=== PATIENT | female | born 1945 | race Caucasian/White ===

== ENCOUNTER → 2018-01-16 12:07 | Outpatient (CLI) | payer MEDICARE, SELFPAY | LOC: LAB 12:11 → RAD 12:26 | PROVIDERS: Family Provider Family Medicine; PCP Family Medicine; Visit Provider Internal Medicine Gastroenterology | DX: Z12.11 Encounter for screening for malignant neoplasm of colon (principal) | CPT/HCPCS: 74270 ==

== ENCOUNTER 2018-02-03 05:21 | Day surgery (SDC) | payer MEDICARE, SELFPAY ==
[2018-02-03] VITALS (7 sets, daily range): BP systolic 109–161; BP diastolic 69–89; PULSE 94–106; RESP 16–18; TEMP 35.8–37; O2SAT 94–98; BMI 27.7
--- NOTE | 2018-02-03 06:58 | OP.ENDO_ITS ---
Patient Name: Cindy Goff Procedure Date: 02/03/2018 6:45 AM Date of : 1945 Age: 72 Procedure: Flexible Sigmoidoscopy Indications: Abnormal barium enema, Diverticulitis Providers: Ryan Valle MD Referring MD: Ryan Valle MD Medicines: Midazolam 3.5 mg IV, Meperidine 75 mg IV Patient Profile: Last Colonoscopy: 2008. Complications: No immediate complications. Procedure: Pre-Anesthesia Assessment: - Prior to the procedure, a History and Physical was performed, and patient medications and allergies were reviewed. The patient's tolerance of previous anesthesia was also reviewed. The risks and benefits of the procedure and the sedation options and risks were discussed with the patient. All questions were answered, and informed consent was obtained. Prior Anticoagulants: The patient has taken aspirin, last dose was 2 days prior to procedure. ASA Grade Assessment: II - A patient with mild systemic disease. After reviewing the risks and benefits, the patient was deemed in satisfactory condition to undergo the procedure. After obtaining informed consent, the endoscope was passed under direct vision. Throughout the procedure, the patient's blood pressure, pulse, and oxygen saturations were monitored continuously.The colonoscopy was performed without difficulty. The patient tolerated the procedure well. The quality of the bowel preparation was good. Moderate Sedation: Moderate (conscious) sedation was personally administered by the endoscopist. The following parameters were monitored: oxygen saturation, heart rate, blood pressure, and response to care. Total physician intraservice time was 15 minutes. Findings: The perianal and digital rectal examinations were normal. Multiple diverticula were found in the sigmoid colon. Area was tattooed with an injection of 0.5 mL of Alfreda ink. Impression: - Diverticulosis in the sigmoid colon. Tattooed at the distal aspect of the dissease. Not able to completely cross the sigmoid colon. - No specimens collected. Recommendation: - Discharge patient to home. - Clear liquid diet. - Return to [facility] tomorrow for surgery for planned resection of the sigmoid colon for diverticular stricture. - Repeat colonoscopy in 1 year for screening purposes. Procedure Code(s): --- Professional --- 23764, Sigmoidoscopy, flexible; with directed submucosal injection(s), any substance 45215, 59, Moderate sedation services provided by the same physician or other qualified health primary health care nurse performing the diagnostic or therapeutic service that the sedation supports, requiring the presence of an independent trained observer to assist in the monitoring of the patient's level of consciousness and physiological status; initial 15 minutes of intraservice time, patient age 5 years or older Diagnosis Code(s): --- Professional --- K57.32, Diverticulitis of large intestine without perforation or abscess without bleeding K57.30, Diverticulosis of large intestine without perforation or abscess without bleeding R93.3, Abnormal findings on diagnostic imaging of other parts of digestive tract CPT copyright 2017 [employer]. All rights reserved. The codes documented in this report are preliminary and upon counseling aide review may be revised to meet current compliance requirements. Ryan Valle MD 02/03/2018 6:58:23 AM This report has been signed electronically. Number of Addenda: 0 Note Initiated On: 02/03/2018 6:45 AM
== END 2018-02-03 08:05 | disposition home or self-care (01) ==
LOC: EN 05:21 → AC 05:22
PROVIDERS: Family Provider Family Medicine; PCP Family Medicine; Visit Provider Surgery
PROC: 0DJD8ZZ Inspection of Lower Intestinal Tract, Via Natural or Artificial Opening Endoscopic (ICD-10-PCS; CPT 45330; principal; 2018-02-03 06:25)
DX: K57.32 Diverticulitis of large intestine without perforation or abscess without bleeding (principal)
CPT/HCPCS: 99152; 99153; J7120; A4648

== ENCOUNTER 2018-02-04 05:23 | Inpatient (IN) | payer MEDICARE, SELFPAY ==
[2018-01-29 11:34] VITALS: BP 139/83; PULSE 91; RESP 16; TEMP 36.7; O2SAT 94; BMI 27.8
--- NOTE | 2018-01-29 12:01 | SDCEKG_ITS ---
Test Reason : Blood Pressure : / mmHG Vent. Rate : 086 BPM Atrial Rate : 086 BPM P-R Int : 168 ms QRS Dur : 068 ms QT Int : 338 ms P-R-T Axes : 054 045 035 degrees QTc Int : 404 ms Normal sinus rhythm Septal infarct , age undetermined Abnormal ECG Confirmed by MICHAEL CONCEPCION, RADHA ([id number]), tape editor WILLIAN RENEE ([id number]) on 02/04/2018 8:32:57 AM Referred By: Ryan Valle Confirmed By:RADHA RODRIGUEZ MD
[2018-01-29 12:53] LABS: Hematocrit 47.7 % (37-47); Hemoglobin 15.2 g/dl (12.0-15.0); Mean Corp Hgb Conc 31.9 g/gl (32-36); Mean Corpuscular Hgb 28.4 pg (27.0-32.0); Mean Corpuscular Volume 89.2 fL (81-99); Mean Platelet Vol. 9.3 fl (6.2-12.0); Platelet Count 462 K/mm3 (150-450); RBC Distribution Width CV 15.7 % (11.6-14.6); RBC Distribution Width SD 50.9 fl (35.1-43.9); Red Blood Count 5.35 M/mm3 (4.2-5.4); White Blood Count 12.2 K/mm3 (4.4-11.0)
[2018-01-29 12:55] LABS: Scan Indicated on CBC? Y/N NO
[2018-01-29 13:14] LABS: Partial Thromboplast Time 28.1 Seconds (24.1-36.2); Prothrombin Time (Protime)PT. 12.7 SECONDS (11.7-14.9)
[2018-01-29 13:30] LABS: AST(SGOT) 17 U/L (15-37); Alanine Aminotransfer ALT/SGPT 33 U/L (13-56); Albumin, Serum 3.6 g/dL (3.2-5.0); Alkaline Phosphatase 162 U/L (45-117); Anion Gap 12 (5-15); BUN 9 mg/dL (7-18); BUN/Creat Ratio 13.4 RATIO (10-20); Bilirubin, Direct 0.14 mg/dL (0.00-0.30); Calcium,Total 9.4 mg/dL (8.5-10.1); Chloride 100 mmol/L (98-107); Creatinine, Serum 0.67 mg/dL (0.55-1.02); EST Glomerular Filtration Rate 92 mL/min (>60); Est Glom Filt Rate - Afr Amer 111 mL/min (>60); Estimated Creatinine Clearance 42.68 ml/min; Glucose 114 mg/dL (74-106); Potassium 3.7 mmol/L (3.5-5.1); Protein, Total 8.6 g/dL (6.4-8.2); Sodium Level 137 mmol/L (136-145); Thyroid Stim Hormone (TSH) 0.71 uIU/mL (0.358-3.74)
[2018-02-04] VITALS (36 sets, daily range): BP systolic 103–161; BP diastolic 45–117; PULSE 83–115; RESP 16–18; TEMP 36.2–37; O2SAT 93–100; BMI 27.8
[2018-02-04] MEDS: Lactated Ringers 1,000 ML 40 ML IV (06:40)
[2018-02-04] MEDS: Lubricating Jelly 60 GM Tube 30 GM TOPICAL (06:52)
--- NOTE | 2018-02-04 07:15 | COL_PTH ---
PATIENT: TONE ZABALA LOC: MS2 U#:[id number] AGE/SX: 72/F ROOM: [facility] – [place] RE02/04/[address]: Dr. Ryan Valle MD : 1945 BED: 1 DIS: 02/06/2018 SPEC #: [id number] RECD: 02/04/18 16:17 STATUS: JIGNESH REChristina #: [id number] FELIX: 02/04/18 07:[address]: Ryan Valle DEPT: SURGICAL PATHOLOGY RECD BY: Lindsey Nicholas ENTERED: 02/05/18 09:25 SP TYPE: COLON OTHR DR: Dr. Ryan Tang MD Tissues: A - Colon Donuts B - Colon Donuts C - Colon, NOS Procedures: Surgery Specimen Level III Surgery Specimen Level IV Surgery Specimen Level V HEADER OPERATION: Laparoscopic converted hand assisted anterior resection, partial Left salpingectomy, left ureteral catheter placement PRE-OP DIAGNOSIS: Colonic obstruction TISSUE SUBMITTED: A. Proximal donut (sigmoid), B. Distal donut (rectal), C. Sigmoid colon with fragment left fallopian tube MICROSCOPIC DIAGNOSIS A. Proximal donut: Colonic donut with mucosal congestion and hemorrhage. B. Distal donut: Colonic donut with mucosal congestion and hemorrhage. C. Sigmoid colon and fragment of left fallopian tube, colectomy and partial left salpingectomy: Diverticulosis and diverticulitis. Portion of fallopian tube with chronic inflammation in the adjacent soft tissue. Pericolonic lymph nodes with reactive changes. ISMAEL:radha 02/09/18 MICROSCOPIC DESCRIPTION Slides are reviewed. GROSS DESCRIPTION A - Received in fixative is one container labeled with the patient's name and designated proximal donut (sigmoid). The specimen consists of a donut-shaped piece of colonic tissue measuring 1.5 x 1.5 x 1.4 cm. The mucosa is congested. No mass lesion is identified. The entire specimen is submitted in one cassette. / ISMAEL:radha 02/05/18 B - Received in fixative is one container labeled with the patient's name and designated distal donut (rectal). The specimen consists of a donut-shaped piece of colonic tissue measuring 2 x 1.5 x 1 cm. Multiple sutures are noted. A focal area of congestion is noted. Neuro Urologist sections are submitted in one cassette. / SJ:radha 02/05/18 C - Received in fixative is one container labeled with the patient's name and designated sigmoid colon with fragment of left fallopian tube. The specimen consists of a V-shaped segment colon with attached pericolonic adipose tissue measuring 17 cm in length. One resection margin is open and other resection margin is stapled. A V-shaped band is noted 11 cm away from the resection margin. The serosal surface in that area is ragged. No mucosal lesion is identified. Also present in the container is a tubular piece of olivarez soft tissue consistent with portion of fallopian tube measuring 2 cm in length and up to 0.5 cm in diameter. Two jordyn are noted at one edge of the specimen. This portion of fallopian tube segment is submitted in cassette 1. More dictation will follow after additional fixation. / ISMAEL:radha 02/05/18 Sections reveal multiple diverticula. Some of the diverticula appear ruptured. Bluish to black dye discoloration is noted in the area of the band segment of the colon. Sections of pericolonic adipose reveal a few possible lymph nodes. Neuro Urologist sections are submitted in nine cassettes as follows: 1 - fallopian tube which will be serially sectioned at the time of embedding, 2 - resection margin with one resection margin inked black, 3 & 4 - diverticula, 5 & 6 - portion of the colon with blue discoloration near the band of segment of the colectomy specimen, 7 & 8 - ragged area of serosal surface, 9 - pericolonic adipose tissue with possible lymph node tissue. / ISMAEL:radha 02/06/18 TC:5 CPT: 10017, 32726 x2, 53808
--- NOTE | 2018-02-04 07:17 | PCM.DC.GS ---
Discharge Diet: Light diet - advance as tolerated - if you have questions about your diet instructions, please talk to you doctor. Discharge Activity: May Not Drive - for 1 week or while taking narcotic pain medicine. May shower in (days): 1 Lifting Restrictions: 10 pounds Call your doctor if your incision/area has: Continuous Slow Oozing, Sudden Increased Bleeding, Increased Pain/ Swelling, Increased Redness, Foul Smelling Discharge Call your doctor if you observe: Fever of 101 or Higher Suture Line Care: Avoid Pulling/Pushing, Avoid Pinching/Bending Additional Dressing/Incision Instructions:: Change or remove dressing in 4 days. Leave steri-strips in place for 1 week. Allergies/Adverse Reactions: Allergies Sulfa (Sulfonamide Antibiotics) Adverse Reaction (Mild, Verified 01/29/18 11:12) achy joints promethazine [From Phenergan] Adverse Reaction (Verified 01/29/18 12:07) hallucinations Medications to take at Discharge aspirin 325 mg tablet 325 mg PO BID 01/26/18 atorvastatin 20 mg tablet 20 mg PO DAILY 01/26/18 hydrochlorothiazide 25 mg tablet 25 mg PO DAILY 01/26/18 levothyroxine 75 mcg capsule 75 mcg PO DAILY 01/26/18 multivitamin capsule 1 cap PO DAILY 01/26/18 omeprazole 20 mg capsule,delayed release 20 mg PO BID cap 01/26/18 ondansetron HCl 4 mg tablet 4 mg PO TID-QID PRN 01/26/18 potassium chloride ER 10 mEq tablet,extended release 10 meq PO DAILY 01/26/18 tramadol 50 mg tablet 50 mg PO Q6H PRN 01/26/18 L.acidoph,Paracasei, B.lactis [Probiotic] 1 each PO DAILY 01/29/18 neomycin 500 mg tablet 500 mg PO .COMPLEX #6 tab 01/29/18 ondansetron 8 mg disintegrating tablet 8 mg PO TID PRN #10 tab 02/03/18 Hydrocodone Bitart/Apap 5-325 [Leopold 5MG-325MG] 1 tablet PO Q6H PRN PRN 3 Days #10 tablet 02/04/18 Metronidazole 500 mg PO .COMPLEX 02/04/18 The following prescriptions were given: Hydrocodone Bitart/Apap 5-325 [Leopold 5MG-325MG] 1 tablet PO Q6H PRN PRN 3 Days #10 tablet PRN Reason: Pain Primary Care Physician: Ryan Tang MD [Primary Care Provider] - Test Results: Test results from this visit will be discussed in further detail at your follow-up appointment, if applicable. Please Follow Up With: Ryan Valle MD - [phone] When: Call to make an appointment to be seen in about 10 days.
--- NOTE | 2018-02-04 07:43 | PCM.OPRPT ---
Report of Operation Date of Procedure: 02/04/18 Pre-Operative Diagnosis: Preoperative sigmoid colectomy for general surgery, history of diverticulitis Post-Operative Diagnosis: Same Surgery/Procedure Performed:: Cystoscopy and left ureteral catheter placement Description of Surgical Findings:: 72-year-old female who underwent general anesthesia she was placed in dorsal lithotomy position the urethra and vaginal area prepped and draped in usual sterile fashion went at the bladder the 21 Martiniquais cystourethroscope inside the bladder she had a minor cystocele the trigone was normal the bladder there is no tumor stones or any abnormalities I then cannulated the left ureteral orifice with a Glidewire and a Pollack catheter and advanced the Pollack catheter up into the kidney pulled the wire left the Pollack catheter in place and then put a catheter in the bladder and secured the Pollack catheter to the Gale catheter. Patient was then released to Dr. Valle to proceed with his surgery. Type of Anesthesia:: General Drains: stent - Admit VTE Documentation VTE Present on Admission: No VTE Mechan Device Prophylaxis: SCD's VTE Pharm Prophylaxis ordered?: No
[2018-02-04] MEDS: Lidocaine/D5W 2,000 MG/250 ML IV.SOLN 21.69 MG IV (08:04)
[2018-02-04] MEDS: Bupivacaine Mpf 0.5% 30 ML VIAL (11:18)
[2018-02-04] MEDS: BUPIVACAINE LIPOSOME/PF 20 ML VIAL OPERA.SITE (11:19)
--- NOTE | 2018-02-04 11:35 | OP.PCM_ITS ---
Problem List (1) Diverticular stricture Status: Acute Report of Operation Date of Procedure: 02/04/18 Pre-Operative Diagnosis: Diverticular stricture. sigmoid diverticulitis Post-Operative Diagnosis: Same Surgery/Procedure Performed:: Laparoscopic sigmoid colectomy converted to hand- assisted low anterior resection with primary end-to-end stapled anastomosis and partial left salpingectomy Description of Surgical Findings:: Time out and informed consent was obtained. 72-year-old female was taken the operating room. She was placed upon the table and underwent general endotracheal intubation anesthesia. Cefotetan 2 g are given intravenously preoperatively. The patient was placed in a low lithotomy position. Performed a cystoscopy with left ureteral catheter placement. Positioning was confirmed. Arm padding was secured with gel pads and being bagged. Low lithotomy position confirmed. Then the perineum and abdomen sterilely prepped and draped. 0.25% Marcaine 30 cc was mixed with 20 cc of Exparel and diluted with 50 cc of saline to a total of 100 cc. This was a local mixture that was used for a tap block and infiltration of the skin. To the right of the umbilicus local was instilled. A 5 minor incision was created. Using a Visiport technology direct access was gained to the abdomen very carefully air was insufflated. Clean access was obtained. There is evidence of extensive adhesions of omentum to the periumbilical area consistent with the patient's previous history of umbilical herniorrhaphy. Five-minute trochars were placed on the right lower quadrant and right superior inguinal region. A Enseal was used to transect the copious adhesions of omentum to the anterior abdominal wall located at the umbilicus. Inspection now revealed with the patient in Trendelenburg position that there was significant inflammatory change with dense adhesions of the sigmoid colon to the left pelvic sidewall. The sigmoid colon upon further inspection was curled back on itself with an inflammatory reaction with it being adherent to it seems self at the rectosigmoid junction. Carefully and tediously laparoscopically freed up adhesions I got most of the left pelvic sidewall freed the left ureter was identified the catheter could be seen in the left ureter in fact I even had inspect this area and everyone involved felt that the left ureter was intact. Later in the case under direct visualization I removed the catheter while watching that left ear and there was absolutely no leakage. After further dissection of the sigmoid colon and freeing it from its position in the pelvis it became apparent that the mesentery to the sigmoid was extraordinarily thickened and that there was still inflammatory change of the rectum at the peritoneal reflection related to the sigmoid having previously been curled back on itself. After further inspection I felt that the safest means to continue to approach his case was to convert to a hand assist. I made a 7 cm incision from the umbilicus straight inferiorly. Electrocautery was used for hemostasis and incised the fascia. A GelPort was inserted. I then utilized that to help visualize the inflammatory thickened sigmoid colon and was able to transect the mesentery with the Enseal device. There was evidence of very dense adhesion right at the rectosigmoid junction to the left pelvic side wall. It could be seen that this was immediately adjacent to the ureter in that area. Using careful blunt dissection and finger dissection and scissor dissection and Enseal dissection I gradually was able to free that portion of the very distal sigmoid from that pelvic sidewall. Having achieved this now I felt that I had good mobilization of the diseased portion of the bowel. I switched out the right lower quadrant foraminal port for a 12-minute report. I inserted a Newbury with a gold load and with 2 firings I was able to transect the rectum. There is noted to be nice and intact. I then incised the white line of Toldt all the way up to the splenic flexure and was able to further mobilize the descending colon. During a portion of that procedure of freeing the sigmoid colon, the left tube and ovary was densely adherent to the colon as well and I did resect a very small portion of the left tube and submitted that as a specimen as well. I Left the left ovary intact. Now I had good release of the sigmoid colon in the area that I wanted to anastomose appear to be viable. This point I elected to do a tap block. Using the Marcaine Exparel saline mixture and under direct laparoscopic inspection I injected bilaterally the subcostal area and then laterally in the intercostal muscular space in order to block sensation to the incision area and surgical area. I felt that I had good injection performed. Finally now having achieved that and having used 80 cc of the local mixture and now withdrew the sigmoid colon at the hand assist site. I transected the remainder of the mesentery using the Enseal device and obtain hemostasis with interrupted 4-0 silk. The remaining sigmoid colon had an excellent blood supply. I transected the bowel after bringing it externally. I placed it with suture of 2-0 Prolene. I placed a 29 mm circular anastomotic anvil. Secured the pursestring. Placed that back within the abdomen. The rectum was irrigated with dilute Betadine. Gently dilated the anus. The stapler was inserted with the assistance of a certified nurse first officer and flight instructor. Watch the stapler and up anterior to the staple line but below the peritoneal reflection but separate from the vaginal tissue. Trocar was exited at that site it was mated to the anvil the 2 were approximated the device was fired and then removed the donuts were inspected they were noted be completely intact. Using a rigid sigmoidoscopy the anastomosis was inspected was noted to be intact no bleeding air was insufflated and there was absolutely no air leak. I felt that I had a good primary anastomosis and that it did not require any diversion. The pelvis was irrigated and aspirated free. Small bowel was in good position. I placed the greater omentum overlying. I then repaired the right lower quadrant pulmonary trocar site using a grainy needle and a [id number] suture of 0 Vicryl. Ports were now removed under visualization the abdomen was allowed to deflate CO2. The patient had evidence of a previous incisional hernia repair at the umbilicus as there was previously some permanent braided suture placed. I elected therefore to close the hand assist port site with a running #1 Prolene. 2 such sutures were used to perform that technique and good approximation was achieved. More of the local mixture was injected directly in and around the incision area for patient comfort. It is of note that at this point the procedure gowns and gloves and draping had been changed as part of the ERAS program. Skin edges were approximated interrupted or running septic or 4-0 Monocryl. Steri-Strips Telfa and OpSite dressings applied. Sponge and instrument and needle counts were reported to the surgeon to be correct. Blood loss was 150 cc. Specimens include sigmoid colon, donuts, portion of left tube Drains none. Blood loss 150 cc. As noted above the left ureteral catheter was removed prior to completion of the operation and the left ureter noted to be completely intact. The patient was taken to the recovery area in satisfactory condition no apparent complication. Ryan Valle M.D., F.A.C.S. Type of Anesthesia:: General Anesthesiologist: Denis Carlton
[2018-02-04] MEDS: Ketorolac 15 MG/ML Vial IV (13:40)
[2018-02-04] MEDS: oxyCODONE 5 MG Tablet PO (20:22)
[2018-02-04] MEDS: Ondansetron ODT 4 MG Tablet PO (20:22)
[2018-02-04] MEDS: Lactated Ringers 1,000 ML 100 ML IV (22:18)
[2018-02-04] MEDS: Aspirin 325 MG Tablet PO (22:21)
[2018-02-04] MEDS: Docusate Sodium 100 MG Capsule PO (22:21)
[2018-02-04] MEDS: Pantoprazole Sodium 20 MG Tablet PO (22:22)
[2018-02-04] MEDS: Atorvastatin Calcium 20 MG Tablet PO (22:22)
[2018-02-05] MEDS: Acetaminophen 500 MG Tablet 1000 MG PO ×4 (00:10→17:33)
[2018-02-05 05:35] LABS: Hematocrit 34.5 % (37-47); Hemoglobin 11.1 g/dl (12.0-15.0); Mean Corp Hgb Conc 32.2 g/gl (32-36); Mean Corpuscular Hgb 28.5 pg (27.0-32.0); Mean Corpuscular Volume 88.7 fL (81-99); Mean Platelet Vol. 8.9 fl (6.2-12.0); Platelet Count 351 K/mm3 (150-450); RBC Distribution Width CV 15.9 % (11.6-14.6); RBC Distribution Width SD 51.3 fl (35.1-43.9); Red Blood Count 3.89 M/mm3 (4.2-5.4); White Blood Count 10.3 K/mm3 (4.4-11.0)
[2018-02-05 05:37] LABS: Scan Indicated on CBC? Y/N NO
[2018-02-05 05:57] LABS: Anion Gap 8 (5-15); BUN 5 mg/dL (7-18); BUN/Creat Ratio 6.9 RATIO (10-20); Calcium,Total 7.9 mg/dL (8.5-10.1); Chloride 107 mmol/L (98-107); Creatinine, Serum 0.73 mg/dL (0.55-1.02); EST Glomerular Filtration Rate 84 mL/min (>60); Est Glom Filt Rate - Afr Amer 101 mL/min (>60); Estimated Creatinine Clearance 42.68 ml/min; Glucose 91 mg/dL (74-106); Potassium 3.5 mmol/L (3.5-5.1); Sodium Level 142 mmol/L (136-145)
[2018-02-05 06:00] VITALS: BP 130/47; PULSE 86; RESP 18; TEMP 36.8; O2SAT 96
[2018-02-05] MEDS: Levothyroxine 75 MCG Tablet PO (06:06)
[2018-02-05] MEDS: Ondansetron ODT 4 MG Tablet PO ×2 (06:07→13:21)
[2018-02-05] MEDS: oxyCODONE 5 MG Tablet PO ×2 (06:07→13:31)
--- NOTE | 2018-02-05 06:48 | PCM.PN.SRG ---
Patient Problems: Active and Suspected Problems (Last Updated 01/26/18 @ 15:43 by Kiya Pate) Diverticular stricture (Acute) Subjective: Patient evaluated resting comfortably in bed. She notes 7 out of 10 abdominal pain. She denies nausea, vomiting. She is urinating well. Tolerating clear liquids. - Physical Exam General: Alert, Oriented x3, Cooperative Abdomen: Hypoactive Bowel Sounds, Distended, Tender - generalized, - - Incisions c/d/i. No erythema or infection noted Vital Signs Temp Pulse Resp BP Pulse Ox 98.2 F 86 18 130/47 H 96 02/05/18 06:00 02/05/18 06:00 02/05/18 06:00 02/05/18 06:00 02/05/18 06:00 Oxygen Flow Rate (L/min) 2 Oxygen Delivery Method Room Air Weight: 159 lb 6.307 oz Body Mass Index (BMI) 27.8 Intake and Output for Last 24 Hours 02/03/18 02/04/18 02/05/18 23:59 23:59 23:59 Intake Total 6900 / 6900 2316 / 2316 Output Total 340 / 340 2200 / 2200 Balance 6560 / 6560 116 / 116 Laboratory Tests Past 24 Hrs 02/05/18 02/05/18 05:05 05:05 WBC 10.3 RBC 3.89 L Hgb 11.1 L Hct 34.5 L MCV 88.7 MCH 28.5 MCHC 32.2 RDW 15.9 H RDW Differential 51.3 H Plt Count 351 MPV 8.9 Sodium 142 Potassium 3.5 Chloride 107 Carbon Dioxide 27.0 Anion Gap 8 BUN 5 L Creatinine 0.73 Estim Creat Clear Calc 42.68 Est GFR (MDRD) Af Amer 101 Est GFR (MDRD) Non-Af 84 BUN/Creatinine Ratio 6.9 L Glucose 91 Calcium 7.9 L Medical Necessity - Tobacco Use Smoking Status: Former smoker Tobacco Use: Non-smoker Assessment/Plan All Active Problems (Last Updated 01/26/18 @ 15:43 by Kiya Pate) Diverticular stricture (Acute) Colonic obstruction (Acute) I a m following this patient in conjunction with Dr. Valle Impression: s/p laparoscopic hand-assisted low anterior resection Clear liquids Encourage ambulation and I.S. If patient notes she is too painful to walk, please try IV pain medication otherwise continue oral We will continue to monitor this patient Code Visit Inpatient E&M: 54183 Subs Hosp L1 - POST-OP; NO CHARGE
[2018-02-05 07:39] VITALS: O2SAT 90
[2018-02-05] MEDS: Aspirin 325 MG Tablet PO ×2 (07:47→17:33)
[2018-02-05 09:09] VITALS: BP 110/65; PULSE 81; RESP 18; TEMP 37; O2SAT 96
[2018-02-05] MEDS: hydroCHLOROthiazide 25 MG Tablet PO (10:01)
[2018-02-05] MEDS: Pantoprazole Sodium 20 MG Tablet PO ×2 (10:01→21:27)
[2018-02-05] MEDS: Docusate Sodium 100 MG Capsule PO ×2 (10:01→21:26)
--- NOTE | 2018-02-05 11:46 | CASEMGMT ---
RN CM assessment completed. Dc Plan home No needs identified @ this time. Benny BSN RN ACM
[2018-02-05 12:11] VITALS: BMI 27.8
[2018-02-05 15:16] VITALS: BP 107/57; PULSE 85; RESP 18; TEMP 36.7; O2SAT 93
[2018-02-05 20:36] VITALS: BP 124/63; PULSE 87; RESP 18; TEMP 36.8; O2SAT 96
[2018-02-05] MEDS: Atorvastatin Calcium 20 MG Tablet PO (21:26)
[2018-02-06] MEDS: Ondansetron ODT 4 MG Tablet PO ×2 (00:10→12:01)
[2018-02-06] MEDS: oxyCODONE 5 MG Tablet PO (00:12)
[2018-02-06] MEDS: Acetaminophen 500 MG Tablet 1000 MG PO ×3 (00:13→13:04)
[2018-02-06 02:40] VITALS: BP 150/74; PULSE 96; RESP 18; TEMP 36.9; O2SAT 95
[2018-02-06] MEDS: Levothyroxine 75 MCG Tablet PO (05:33)
--- NOTE | 2018-02-06 05:33 | PCM.PN.SRG ---
Patient Problems: Active and Suspected Problems (Last Updated 01/26/18 @ 15:43 by Kiya Pate) Diverticular stricture (Acute) Subjective: No nausea, improved pain, no flatus - Physical Exam Lungs: Clear to auscultation Abdomen: Soft, Hypoactive Bowel Sounds Vital Signs Temp Pulse Resp BP Pulse Ox 98.4 F 96 18 150/74 H 95 02/06/18 02:40 02/06/18 02:40 02/06/18 02:40 02/06/18 02:40 02/06/18 02:40 Oxygen Flow Rate (L/min) 1 Oxygen Delivery Method Room Air Weight: 159 lb 6.307 oz Body Mass Index (BMI) 27.8 Intake and Output for Last 24 Hours 02/04/18 02/05/18 02/06/18 23:59 23:59 23:59 Intake Total 6900 / 6900 4569 / 4569 Output Total 340 / 340 4200 / 4200 Balance 6560 / 6560 369 / 369 Laboratory Tests Past 24 Hrs 02/05/18 02/05/18 05:05 05:05 WBC 10.3 RBC 3.89 L Hgb 11.1 L Hct 34.5 L MCV 88.7 MCH 28.5 MCHC 32.2 RDW 15.9 H RDW Differential 51.3 H Plt Count 351 MPV 8.9 Sodium 142 Potassium 3.5 Chloride 107 Carbon Dioxide 27.0 Anion Gap 8 BUN 5 L Creatinine 0.73 Estim Creat Clear Calc 42.68 Est GFR (MDRD) Af Amer 101 Est GFR (MDRD) Non-Af 84 BUN/Creatinine Ratio 6.9 L Glucose 91 Calcium 7.9 L Medical Necessity - Tobacco Use Smoking Status: Former smoker Tobacco Use: Non-smoker Assessment/Plan All Active Problems (Last Updated 01/26/18 @ 15:43 by Kiya Pate) Diverticular stricture (Acute) Colonic obstruction (Acute) Mobilize Advance diet
[2018-02-06] MEDS: traMADol 50 MG Tablet PO ×2 (05:39→13:08)
[2018-02-06] MEDS: Polyethylene Glycol 3350 17 GM PACKET 34 GM PO (06:29)
[2018-02-06 07:18] LABS: Color, Urine Yellow (Yellow); Glucose, Dipstick Normal (Normal); Ketone-Dipstick Negative (Negative); Leukocyte Esterase-Dipstick 25 /ul (Negative); Nitrite-Dipstick Negative (Negative); Occult Blood-Urine 250 /ul (Negative); Protein-Dipstick 30 mg/dl (Negative); Urine Bilirubin Dipstick Negative (Negative); Urine Clarity Sl. Cloudy (Clear); Urine Urobilinogen Normal (Normal); Urine pH 6.5 (5.0 - 8.0)
[2018-02-06 07:30] VITALS: O2SAT 95
[2018-02-06 07:35] VITALS: BP 125/76; PULSE 90; RESP 16; TEMP 36.9; O2SAT 92
[2018-02-06] MEDS: Aspirin 325 MG Tablet PO (07:50)
[2018-02-06] MEDS: hydroCHLOROthiazide 25 MG Tablet PO (09:57)
[2018-02-06] MEDS: Pantoprazole Sodium 20 MG Tablet PO (09:57)
[2018-02-06] MEDS: Docusate Sodium 100 MG Capsule PO (09:57)
[2018-02-06 13:59] VITALS: BP 120/68; PULSE 90; RESP 16; TEMP 36.7; O2SAT 100
== END 2018-02-06 16:11 | disposition home or self-care (01) | DRG 331 ==
LOC: ACINP 05:24 → MS2 08:21
PROVIDERS: Admitting Provider Surgery; Family Provider Family Medicine; PCP Family Medicine; Visit Provider Surgery
PROC: 0DBN4ZZ Excision of Sigmoid Colon, Percutaneous Endoscopic Approach (ICD-10-PCS; CPT 44204; principal; 2018-02-04 06:50)
DX: K57.32 Diverticulitis of large intestine without perforation or abscess without bleeding (principal); Z53.31 Laparoscopic surgical procedure converted to open procedure; K66.0 Peritoneal adhesions (postprocedural) (postinfection); Z23 Encounter for immunization
CPT/HCPCS: 36415; 80048; 80076; 81002; 84443; 85027; 85610; 85730; 88304; 88305; 88307; 93005; 94762; 97802; 99152; 99153; J7040; J7050; J7120; 90686; A4648; C1760; C1769; J2405